=== PATIENT | male | born 1960 | race Caucasian/White ===

== ENCOUNTER 2022-03-09 15:39 | Outpatient (REF) | payer OTHER, SELFPAY ==
[2022-03-09 17:54] LABS: SARS PCR* POSITIVE SARS-CoV-2 (Negative)
== END 2022-03-09 15:40 | disposition home or self-care (01) ==
LOC: NPINS 15:39
PROVIDERS: Visit Provider Internal Medicine Gastroenterology
DX: Z20.822 Contact with and (suspected) exposure to COVID-19 (principal)
CPT/HCPCS: 87635

== ENCOUNTER 2022-03-12 10:08 | Outpatient (CLI) | payer OTHER, SELFPAY ==
[2022-03-12 10:42] LABS: SARS Antigen* Negative (Negative)
== END 2022-03-12 10:09 | disposition home or self-care (01) ==
LOC: OP CLINIC 10:09
PROVIDERS: Visit Provider Internal Medicine Gastroenterology
DX: D50.9 Iron deficiency anemia, unspecified (principal)
CPT/HCPCS: 43239; 87426; 88305; J2250; J3010